=== PATIENT | female | born 1945 | race Caucasian/White ===

== ENCOUNTER 2017-06-03 18:34 | Inpatient (IN) | payer OTHER, MEDICARE ==
[~2017-06-03] VITALS: Ht 160 cm; Wt 66.9 kg
[~2017-06-03 18:34] MED LIST: ADULT LOW DOSE81 M1 PO; ASPIR 8181 M1 PO; ATORVASTATIN CA80 MG PO; B-COMPLEX-VITA1 EACH PO; COUMADIN4 MG PO; COUMADIN5 MG PO; ERGOCALCIF50000 UNIT PO; Ecotrin PO; FELODIPINE ER10 M1 PO; FELODIPINE ER5 MG PO; FOLIC ACID1 MG PO; HYDROCHLOROTHIA25 MG PO; Hydrodiuril,Oretic,E PO; JANTOVEN4 MG PO; METOPROLOL SUCC50 MG PO; PLAVIX75 MG PO; PLENDIL10 MG PO; PRAVASTATIN SOD10 MG PO
[2017-06-03] MEDS ORDERED: NORCO 5/3251 TABLET PO (19:05)
[2017-06-03] MEDS ORDERED: ZOFRAN ODT4 MG PO (19:07)
[2017-06-03 19:42] LABS: HEMATOCRIT 40.9 % (36.0-46.0); HEMOGLOBIN 13.9 G/DL (11.9-15.5); MCH 31.7 PG (29.0-34.0); MCV 93.4 FL (83-99); PLATELET COUNT 244 K/uL (156-360); RBC DIS.WIDTH-CV 12.6 % (11.8-14.6); RED BLOOD COUNT 4.38 M/uL (3.80-5.20); WHITE BLOOD COUNT 14.1 K/uL (4.1-10.2)
[2017-06-03 20:14] LABS: ALBUMIN 4.2 g/dL (3.2-4.8); CHLORIDE 106 mEq/L (99-109); POTASSIUM 4.3 mEq/L (3.7-5.4); SODIUM 144 mEq/L (136-147)
[2017-06-03 20:17] LABS: GLUCOSE 156 mg/dL (70-99); TOTAL PROTEIN 6.5 g/dL (6.4-8.3)
[2017-06-03 20:18] LABS: TOTAL BILIRUBIN 0.5 mg/dL (0.0-1.0)
[2017-06-03 20:20] LABS: ALKALINE PHOSPHATASE 85 IU/L (3-129); CREATININE 1.1 mg/dL (0.6-1.3); GFR ESTIMATE (CALCULATED) 52 mL/min/
[2017-06-03 20:21] LABS: UREA NITROGEN (BUN) 27 mg/dL (9-23)
[2017-06-03 20:22] LABS: AST (GOT) 14 IU/L (2-34)
[2017-06-03 20:23] LABS: ALT (GPT) 16 IU/L (3-49)
[2017-06-03] MEDS ORDERED: HYDROCHLOROTH12.5 M3 PO (23:06)
[2017-06-03] MEDS ORDERED: CLOPIDOGREL75 MG PO (23:06)
[2017-06-03] MEDS ORDERED: LISINOPRIL10 MG PO (23:06)
[2017-06-03 23:31] LABS: APPEARANCE CLOUDY ((CLEAR)); BILIRUBIN NEGATIVE; BLOOD LARGE; COLOR AMBER ((YELLOW)); GLUCOSE (STRIP) NEGATIVE; KETONES 20; LEUKOCYTES NEGATIVE; NITRITE NEGATIVE; PROTEIN (STRIP) 100; SPECIFIC GRAVITY 1.033 (1.000-1.030)
[2017-06-04 00:12] LABS: RED BLOOD CELLS TNTC /HPF (0-5); WHITE BLOOD CELLS 0-5 /HPF (0-5)
[2017-06-04 00:13] LABS: BACTERIA 3+ /HPF; EPITHELIAL CELLS RARE /HPF; MUCUS NONE SEEN /LPF; UCUL ADDED? YES
[2017-06-04 00:14] LABS: CALCIUM OXALATE CRYSTALS 1+ /HPF
[2017-06-04 01:05] VITALS: BP 148/67
[2017-06-04 04:51] VITALS: BP 139/64
[2017-06-04 05:52] LABS: HEMATOCRIT 41.2 % (36.0-46.0); HEMOGLOBIN 13.2 G/DL (11.9-15.5); MCH 30.6 PG (29.0-34.0); MCV 95.4 FL (83-99); PLATELET COUNT 245 K/uL (156-360); RBC DIS.WIDTH-CV 12.6 % (11.8-14.6); RBC DIS.WIDTH-SD 44.5 % (39-53); RED BLOOD COUNT 4.32 M/uL (3.80-5.20); WHITE BLOOD COUNT 14.2 K/uL (4.1-10.2)
[2017-06-04 06:32] LABS: ALBUMIN 4.2 G/DL (3.2-4.8); ALKALINE PHOSPHATASE 77 IU/L (3-129); ALT (GPT) 14 IU/L (3-49); AST (GOT) 14 IU/L (2-34); CHLORIDE 105 MEQ/L (99-109); CREATININE 1.4 MG/DL (0.6-1.3); GFR ESTIMATE (CALCULATED) 39 mL/min/; GLUCOSE 124 mg/dL (70-99); POTASSIUM 4.7 MEQ/L (3.7-5.4); SODIUM 144 MEQ/L (136-147); TOTAL BILIRUBIN 0.5 MG/DL (0.0-1.0); TOTAL PROTEIN 6.3 G/DL (6.4-8.3); UREA NITROGEN (BUN) 29 mg/dL (9-23)
[2017-06-04 06:43] VITALS: BP 153/69
[2017-06-04 11:12] VITALS: BP 124/58
[2017-06-04 15:25] VITALS: BP 122/60
[2017-06-04 19:23] VITALS: BP 169/76
[2017-06-05] VITALS: BP 148/82
[2017-06-05 05:48] LABS: BASOPHIL (%) 0.3 % (0-1); EOSINOPHIL COUNT 0.1 K/uL (0-0.3); HEMATOCRIT 37.6 % (36.0-46.0); HEMOGLOBIN 11.9 G/DL (11.9-15.5); IMMATURE GRANULOCYTE (%) 0.2 % (0.0-0.7); LYMPHOCYTE (%) 11.6 % (15-42); LYMPHOCYTE COUNT 1.2 K/uL (1.0-2.8); MCH 30.5 PG (29.0-34.0); MCHC 31.6 G/DL (30.0-36.0); MCV 96.4 FL (83-99); MONOCYTE (%) 8.2 % (3-12); MONOCYTE COUNT 0.8 K/uL (0-0.8); NEUTROPHIL (%) 78.7 % (45-76); PLATELET COUNT 177 K/uL (156-360); RBC DIS.WIDTH-CV 12.8 % (11.8-14.6); RBC DIS.WIDTH-SD 45.1 % (39-53); WHITE BLOOD COUNT 10.2 K/uL (4.1-10.2)
[2017-06-05 06:28] LABS: ALBUMIN 3.7 G/DL (3.2-4.8); ALKALINE PHOSPHATASE 68 IU/L (3-129); ALT (GPT) 11 IU/L (3-49); AST (GOT) 16 IU/L (2-34); CHLORIDE 111 MEQ/L (99-109); CREATININE 1.7 MG/DL (0.6-1.3); GFR ESTIMATE (CALCULATED) 31 mL/min/; GLUCOSE 111 mg/dL (70-99); POTASSIUM 4.8 MEQ/L (3.7-5.4); SODIUM 145 MEQ/L (136-147); UREA NITROGEN (BUN) 27 mg/dL (9-23)
[2017-06-05 06:29] LABS: TOTAL BILIRUBIN 0.8 MG/DL (0.0-1.0); TOTAL PROTEIN 5.2 G/DL (6.4-8.3)
[2017-06-05 08:05] VITALS: BP 131/62
[2017-06-05 11:35] VITALS: BP 143/63
[2017-06-05 16:15] VITALS: BP 110/55
[2017-06-05 21:37] VITALS: BP 121/64
[2017-06-06 00:21] VITALS: BP 152/80
[2017-06-06 05:59] LABS: BASOPHIL (%) 0.3 % (0-1); EOSINOPHIL (%) 0.7 % (0-5); EOSINOPHIL COUNT 0.1 K/uL (0-0.3); HEMATOCRIT 37.1 % (36.0-46.0); IMMATURE GRANULOCYTE (%) 0.4 % (0.0-0.7); LYMPHOCYTE COUNT 1.3 K/uL (1.0-2.8); MCH 30.6 PG (29.0-34.0); MCHC 32.3 G/DL (30.0-36.0); MCV 94.6 FL (83-99); MONOCYTE (%) 5.9 % (3-12); MONOCYTE COUNT 0.6 K/uL (0-0.8); NEUTROPHIL (%) 79.7 % (45-76); NEUTROPHIL COUNT 8.2 K/uL (1.8-6.4); PLATELET COUNT 186 K/uL (156-360); RBC DIS.WIDTH-CV 12.3 % (11.8-14.6); RBC DIS.WIDTH-SD 42.8 % (39-53); RED BLOOD COUNT 3.92 M/uL (3.80-5.20); WHITE BLOOD COUNT 10.2 K/uL (4.1-10.2)
[2017-06-06 06:27] LABS: CHLORIDE 108 MEQ/L (99-109); GFR ESTIMATE (CALCULATED) 52 mL/min/; GLUCOSE 107 mg/dL (70-99); POTASSIUM 4.4 MEQ/L (3.7-5.4); SODIUM 141 MEQ/L (136-147); UREA NITROGEN (BUN) 19 mg/dL (9-23)
[2017-06-06 06:28] LABS: CREATININE 1.1 MG/DL (0.6-1.3)
[2017-06-06 08:10] VITALS: BP 142/66
[2017-06-06 11:53] VITALS: BP 136/69
[2017-06-06 15:14] LABS: UR CREATININE CONCENTRATION 102.1 MG/DL
[2017-06-06 16:19] VITALS: BP 113/69
[2017-06-06 18:26] VITALS: BP 180/81
[2017-06-07] VITALS: BP 154/84
[2017-06-07 06:05] LABS: BASOPHIL (%) 0.4 % (0-1); EOSINOPHIL (%) 0.8 % (0-5); EOSINOPHIL COUNT 0.1 K/uL (0-0.3); HEMATOCRIT 33.5 % (36.0-46.0); HEMOGLOBIN 11.4 G/DL (11.9-15.5); IMMATURE GRANULOCYTE (%) 0.3 % (0.0-0.7); LYMPHOCYTE (%) 14.5 % (15-42); LYMPHOCYTE COUNT 1.1 K/uL (1.0-2.8); MCH 31.5 PG (29.0-34.0); MCV 92.5 FL (83-99); MONOCYTE (%) 7.1 % (3-12); MONOCYTE COUNT 0.5 K/uL (0-0.8); NEUTROPHIL (%) 76.9 % (45-76); NEUTROPHIL COUNT 5.8 K/uL (1.8-6.4); PLATELET COUNT 175 K/uL (156-360); RBC DIS.WIDTH-CV 12.3 % (11.8-14.6); RBC DIS.WIDTH-SD 41.3 % (39-53); RED BLOOD COUNT 3.62 M/uL (3.80-5.20); WHITE BLOOD COUNT 7.6 K/uL (4.1-10.2)
[2017-06-07 06:39] LABS: CHLORIDE 105 MEQ/L (99-109); CREATININE 0.7 MG/DL (0.6-1.3); GFR ESTIMATE (CALCULATED) > 59 mL/min/; GLUCOSE 86 mg/dL (70-99); POTASSIUM 4.1 MEQ/L (3.7-5.4); SODIUM 142 MEQ/L (136-147); UREA NITROGEN (BUN) 11 mg/dL (9-23)
[2017-06-07 07:40] VITALS: BP 142/63
[2017-06-07 12:45] VITALS: BP 192/89
[2017-06-07 16:30] VITALS: BP 136/61
[2017-06-07] MEDS ORDERED: CEFTIN500 MG PO (16:57)
[2017-06-07] MEDS ORDERED: PROAIR RESPICL90 MCG IH (16:57)
[2017-06-07] MEDS ORDERED: TRAMADOL HCL50 MG PO (17:04)
== END 2017-06-07 18:07 | disposition home or self-care (01) | DRG 669 ==
LOC: EME 18:34 → 5EAST 22:51 → EDOF 22:51 → ENRESERV 22:52 → 5EAST 23:42
PROVIDERS: Emergency Medicine Emergency Medical Services; Hospitalist; Internal Medicine; Physician Assistant
DX: N13.2 Hydronephrosis with renal and ureteral calculous obstruction (principal); K80.64 Calculus of gallbladder and bile duct with chronic cholecystitis without obstruction; J98.11 Atelectasis; N17.9 Acute kidney failure, unspecified; N13.1 Hydronephrosis with ureteral stricture, not elsewhere classified; E78.5 Hyperlipidemia, unspecified; F17.210 Nicotine dependence, cigarettes, uncomplicated; I10 Essential (primary) hypertension; I25.10 Atherosclerotic heart disease of native coronary artery without angina pectoris; J43.9 Emphysema, unspecified; K40.90 Unilateral inguinal hernia, without obstruction or gangrene, not specified as recurrent; R09.02 Hypoxemia; D72.829 Elevated white blood cell count, unspecified; K57.90 Diverticulosis of intestine, part unspecified, without perforation or abscess without bleeding; Z79.82 Long term (current) use of aspirin; Z79.02 Long term (current) use of antithrombotics/antiplatelets; Z86.73 Personal history of transient ischemic attack (TIA), and cerebral infarction without residual deficits; Z90.710 Acquired absence of both cervix and uterus; Z95.1 Presence of aortocoronary bypass graft; Z79.51 Long term (current) use of inhaled steroids; Z82.49 Family history of ischemic heart disease and other diseases of the circulatory system
CPT/HCPCS: 71045; 74176; 76770; 80048; 80053; 81003; 82365 90; 82436; 82570; 84133; 84300; 85025; 85027; 87086; 93005; 94760; 94799; 99202; 99281; 99285; C1726; C1758; C1769; C2625; J0330; J0696; J1170; J1580; J1644; J1885; J2405; J3010; J7030; J7050